=== PATIENT | male | born 1940 | race Caucasian/White ===

== ENCOUNTER 2016-06-06 07:09 | Day surgery (SDC) | payer MEDICARE ==
[~2016-06-06] VITALS: Ht 177.8 cm; Wt 80.0 kg
[~2016-06-06 07:09] MED LIST: ACETAMINOPHEN 500 MG TAB (TYLENOL) PO SCH; BUPIVACAINE/EPINEPHRINE 0.5%-1:200,000 (MARCAINE) 30 ML VIAL INJ ONE; LACTATED RINGERS 1,000 ML IV SCH; LIDOCAINE/EPINEPHRINE 1% 1:100,000 (XYLOCAINE) 30 ML VIAL INJ ONE; ROPIVACAINE 0.2% 200 ML ONE; SODIUM CHLORIDE FLUSH 3 ML SYR IV PRN; ceFAZolin 2,000 MG in WATER (STERILE) FOR INJECTION 20 ML IV SCH; oxyCODONE IMMEDIATE RELEASE 5 MG (OXYIR) TAB PO SCH
[2016-06-06 07:25] VITALS: BP 150/70
[2016-06-06] MEDS ORDERED: BUPIVACAINE/EPINEPHRINE 0.25%-1:200,000 (MARCAINE) 30 ML VIAL INJ ONE ×2 (08:23→08:50)
[2016-06-06] MEDS ORDERED: REMIFENTANIL 1 MG (ULTIVA) VIAL IV ONE (09:20)
[2016-06-06] MEDS ORDERED: MIDAZOLAM 2 MG/2 ML (VERSED) VIAL ONE (09:20)
[2016-06-06] MEDS ORDERED: PROPOFOL 20 ML IV ONE ×3 (09:21)
[2016-06-06] MEDS ORDERED: ceFAZolin 1000 MG (ANCEF) VIAL ONE (09:28)
[2016-06-06] MEDS ORDERED: ONDANSETRON 2 MG/ML (Z0FRAN) 2 ML VIAL ONE (09:37)
[2016-06-06] MEDS ORDERED: KETOROLAC 60 MG/2 ML (TORADOL) VIAL IM ONE (12:09)
[2016-06-06 12:11] VITALS: BP 144/84
[2016-06-06 12:26] VITALS: BP 116/58
[2016-06-06] MEDS ORDERED: HYDROcodone/APAP 5 MG/325 MG (NORCO) TAB PO PRN (12:44)
[2016-06-06] MEDS ORDERED: ONDANSETRON 2 MG/ML (Z0FRAN) 2 ML VIAL IV PRN (12:44)
[2016-06-06 12:45] VITALS: BP 119/83
[2016-06-06 12:58] VITALS: BP 125/67
== END 2016-06-06 13:16 | disposition home or self-care (01) ==
LOC: ASC 07:09
PROVIDERS: ATTEND Surgery
DX: K40.20 Bilateral inguinal hernia, without obstruction or gangrene, not specified as recurrent (principal); I25.10 Atherosclerotic heart disease of native coronary artery without angina pectoris; I11.0 Hypertensive heart disease with heart failure; I50.9 Heart failure, unspecified; Z85.038 Personal history of other malignant neoplasm of large intestine; Z90.49 Acquired absence of other specified parts of digestive tract
CPT/HCPCS: 36415; 49505; 84132; 93005; A4649; A9270; C1781; J0690; J1885; J2250; J2795; J7120